=== PATIENT | male | born 1955 | race Caucasian/White ===

== ENCOUNTER 2016-10-30 07:14 | Day surgery (SDC) | payer OTHER ==
--- NOTE | 2016-10-29 14:15 | GHP ---
[f rep st] HISTORY AND PHYSICAL DATE OF ADMISSION: 10/30/2016 HISTORY: Patient 61-year-old male, who comes to our office complaining of an umbilical mass that has been causing him pain over the last year. He has had it for 15-20 years, but it was not bothering h im, so he did not desire treatment earlier. He has never had surgery in this area of his body. PAST SURGICAL HISTORY: Right foot cyst removal. PAST MEDICAL HISTORY: Exercise-induced asthma, GERD. SOCIAL HISTORY: Patient is a nurse at [employer]. Moved to [place] 2 years ago fro [facility]. Nonsmoker. MEDICATIONS: Albuterol steroid inhaler. ALLERGIES: Keflex. REVIEW OF SYSTEMS: He had a negative 10-point review of systems. PHYSICAL EXAM: GENERAL: Patient is a pleasant male, in no apparent distress. HEAD AND NECK: Normo cephalic, atraumatic. CHEST: CTA bilaterally. ABDOMEN: There is a small/medium reducible umbilica l mass consistent with hernia. EXTREMITIES: No lower extremity edema. Normal dorsalis pedis pulse to palpation. IMPRESSION: A 61-year-old male with umbilical hernia. RECOMMENDATION: Open umbilical hernia repair was discussed with the patient in detail, including ris ks of recurrence, infection, nerve injury, bleeding. The patient elects to proceed with scheduling s [facility] for October 30, 2016. /[id number]/MODL
[~2016-10-30 07:14] MED LIST: CLINDAMYCIN 600 MG/DEXTROSE 50 ML IV ONE
[2016-10-30] MEDS ORDERED: SKIN ADHESIVE (DERMABOND) 1 EACH TP ONE (08:31)
[2016-10-30] MEDS ORDERED: BUPIVACAINE 0.5% 30 ML SDV ONE (08:31)
[2016-10-30] MEDS ORDERED: LR 1,000 ML IV ONE (08:37)
[2016-10-30] MEDS ORDERED: LIDOCAINE 1% 5 ML SDV ID PRN (08:37)
[2016-10-30] MEDS ORDERED: CLINDAMYCIN 600 MG/DEXTROSE/50 ML BAG IV ONE ×2 (08:57→08:59)
[2016-10-30] MEDS ORDERED: CITRIC ACID/SODIUM CITRATE 30 ML UDCUP ONE (10:45)
[2016-10-30] MEDS ORDERED: MIDAZOLAM 2 MG/2 ML VIAL ONE (10:48)
[2016-10-30] MEDS ORDERED: fentaNYL 100 MCG/2 ML INJ ONE (11:00)
[2016-10-30] MEDS ORDERED: PROPOFOL 200 MG/20 ML VIAL ONE (11:00)
[2016-10-30] MEDS ORDERED: CITRIC ACID/SODIUM CITRATE 30 ML UDCUP PO ONE (11:00)
[2016-10-30] MEDS ORDERED: ROCURONIUM 50 MG/5 ML VIAL ONE (11:01)
[2016-10-30] MEDS ORDERED: PHENYLEPHRINE HCL 100 MCG/ML SYR ONE (11:18)
[2016-10-30] MEDS ORDERED: LIDOCAINE 2% 5 ML SDV ONE (11:29)
[2016-10-30] MEDS ORDERED: DEXAMETHASONE 4 MG/ML VIAL ONE ×2 (11:32)
[2016-10-30] MEDS ORDERED: GLYCOPYRROLATE 0.2 MG/1 ML VIAL ONE (11:33)
[2016-10-30] MEDS ORDERED: ONDANSETRON 4 MG/2 ML VIAL ONE (11:44)
[2016-10-30] MEDS ORDERED: SUGAMMADEX SODIUM 200 MG/2 ML VIAL IVP ONE (11:55)
[2016-10-30] MEDS ORDERED: KETOROLAC 30 MG/1 ML SDV ONE (11:55)
[2016-10-30] MEDS ORDERED: HYDROCODONE/APAP 5/325 TAB ONE (13:04)
--- NOTE | 2016-11-02 19:43 | GOP ---
[f rep st] OPERATIVE REPORT DATE OF OPERATION: 10/30/2016 SURGEON: Adrián Weinstein MD PLUMBING CONTRACTOR: Steve Dean PA-C PREOPERATIVE DIAGNOSIS: Umbilical hernia. POSTOPERATIVE DIAGNOSIS: Umbilical hernia. PROCEDURE PERFORMED: Open umbilical hernia repair with mesh. FINDINGS: The patient was found to have a 3 cm umbilical defect. DESCRIPTION OF PROCEDURE: Patient taken to the operating room where he received satisfactory general endotracheal anesthesia. He was placed in a supine position, prepped and draped in usual sterile fa shion. Infraumbilical incision was made. Dissection was carried down to the rectus sheath which was incised. The umbilical sac was dissected free from the surrounding subcutaneous tissue and from the skin of the umbilicus. The sac was opened on the fascial edges and its contents were reduced. A martinez bfascial space was created and a piece of polypropylene mesh was placed subfascially, but preperitone ally, and secured around the circumference with interrupted 0 Ethibond mattress sutures. The defect itself was then closed directly with a alybgv-ce-yiald 0 Vicryl sutures. The wound was infiltrated w ith 0.5% Marcaine. Subcu was closed with 3-0 Vicryl, the skin with a 4-0 Monocryl subcuticular stitc h. He tolerated the procedure well. Taken to the recovery room in good condition. No complications . Blood loss negligible. /[id number]/MODL
== END 2016-10-30 13:50 | disposition home or self-care (01) ==
LOC: FSGY 07:14
PROVIDERS: ATTEND Surgery
PROC: 0WQF0ZZ Repair Abdominal Wall, Open Approach (ICD-10-PCS; principal; 2016-10-30 09:30)
DX: K42.9 Umbilical hernia without obstruction or gangrene (principal); K21.9 Gastro-esophageal reflux disease without esophagitis; J45.990 Exercise induced bronchospasm
CPT/HCPCS: C1781; J1100; J1885; J2250; J2370; J2405; J2704; J3010

== ENCOUNTER 2016-11-11 09:23 | Day surgery (SDC) | payer OTHER ==
[2016-11-11] MEDS ORDERED: LR 1,000 ML IV ONE (10:11)
[2016-11-11] MEDS ORDERED: LIDOCAINE 1% 5 ML SDV ID PRN (10:11)
[2016-11-11] MEDS ORDERED: PROPOFOL/EMULSION 500 MG/50 ML BOTTLE IV ONE ×2 (10:26→11:13)
[2016-11-11] MEDS ORDERED: MIDAZOLAM 2 MG/2 ML VIAL ONE (10:44)
--- NOTE | 2016-11-11 12:27 | GPN ---
[f rep st] PROCEDURE NOTE PREPROCEDURE DIAGNOSES: Heartburn and need for screening colonoscopy. POSTPROCEDURE DIAGNOSES: 1. Gastroesophageal junction polyp. 2. Tecumseh grade A esophagitis. 3. Antral gastritis. 4. Left-sided diverticulosis. 5. Transverse colon polyp. PROCEDURES: 1. Esophagogastroduodenoscopy with biopsies. 2. Colonoscopy with biopsies/. MEDICATIONS: Monitored anesthesia care. INDICATIONS: Rudy Barger is a 61-year-old gentleman with a longstanding history of reflux and hea rtburn. He has currently been off medications and is using lifestyle modifications to treat his symp toms. His last colonoscopy was 10 years ago and he had diverticulitis that time. He is here also fo r a screening colonoscopy, and further evaluation of reflux and heartburn. The risks and benefits o f the procedure were discussed with the patient, and consent obtained. The risks include, but are n ot limited to, bleeding, perforation, risks related to sedation. The patient is ASA class 2. DESCRIPTION OF PROCEDURE: The end-viewing endoscope was inserted into the esophagus, into the stomac h, and second portion of the duodenum. The esophagus upper 2/3 appears normal. At the GE junction, which was located at 44 cm from the incisors, there are a few minor breaks and inflammation consisten t with LA grade A esophagitis. There is a 4 mm polyp which is located along the gastric side of the GE junction. This may be related to reflux. Biopsies were taken using cold biopsy forceps. The jewel earance is benign. The gastric antrum showed minor changes consistent with gastritis. Biopsies were taken with cold biopsy forceps to evaluate for Helicobacter pylori. The duodenum second portion wa s normal. The patient was then repositioned and the adult colonoscope was advanced into the terminal ileum, whi ch appeared normal. The appendiceal orifice, cecum, IC valve, ascending colon, hepatic flexure appea red normal. A 2 mm polyp in the transverse colon was removed using cold biopsy forceps. There was n o other pathology. The splenic flexure was normal. The descending colon and sigmoid colon showed sm all diverticula consistent with mild diverticulosis. Retroflexed views in the rectum were normal. IMPRESSION: 1. Tecumseh grade A esophagitis. 2. Nodular esophagitis/gastric polyp on the gastric side of the gastroesophageal junction, status po st biopsy. 3. Antral gastritis, status post biopsy. 4. Transverse colon polyp, status post removal. 5. Diverticulosis located in the left colon. RECOMMENDATIONS: 1. Advance diet as tolerated. 2. Discharge to home with escort. 3. Follow up final pathology results. These results are available within 10 days. 4. Consider a short trial of acid suppression therapy with omeprazole 40 mg orally once a day for 2 months. Will correlate with current symptoms. 5. Repeat colonoscopy based on pathology results. If the biopsy shows an adenomatous polyp, repeat colonoscopy in 5 years is recommended. Thank you for allowing me to participate in the care of your patient. Please do not hesitate to call with questions. /[id number]/MODL
== END 2016-11-11 12:50 | disposition home or self-care (01) ==
LOC: FPAT 09:23 → FSGY 09:23 → FPAT 12:50
PROVIDERS: ATTEND Internal Medicine Gastroenterology
DX: K31.7 Polyp of stomach and duodenum (principal); D12.3 Benign neoplasm of transverse colon; K20.9 Esophagitis, unspecified; K29.50 Unspecified chronic gastritis without bleeding; K57.30 Diverticulosis of large intestine without perforation or abscess without bleeding; Z12.11 Encounter for screening for malignant neoplasm of colon
CPT/HCPCS: J2250; J2704